=== PATIENT | male | born 1955 | race Caucasian/White ===

== ENCOUNTER 2017-11-18 16:19 | Observation (INO) ==
--- NOTE | 2017-11-18 16:57 | Emergency Department Note ---
Disposition Clinical Impression: Chest pain Qualifiers: Chest pain type: unspecified Qualified Code(s): R07.9 - Chest pain, unspecified Disposition: Admitted As Inpatient Condition: Good Forms: ED Satisfaction Letter Time of Disposition: 18:16 Chest Pain HPI - General Chief Complaint: ED Chest Pain Stated Complaint: chest pain,headache Time Seen by Provider: 11/18/17 16:41 Source: patient Mode of arrival: ambulatory Limitations: no limitations Vital Signs Reviewed: Yes Nursing Notes Reviewed: Yes - History of Present Illness HPI Narrative: 62-year-old male who comes in complaining of chest pain about 7:00 this morning describes it as a pressure-like pain across distress. Patient has no history of previous heart attack however has not had any recent cardiac workup. Risk factors include family history and high cholesterol. Pt complaint: chest pain Onset (ago): hour(s) Duration: constant Onset: during rest Pain Location: substernal, left chest Severity: moderate, severe Severity scale (1-10): 8 Quality: other (Pressure-like) Pain Radiation: none Improves with: nothing Worsens with: nothing Treatments prior to arrival chest pain: none - Related Data Previous Rx's Medication Instructions Recorded Mupirocin [Bactroban Oint] 1 appl TP BID 5 Days tube 05/02/15 Amoxicillin 875 mg PO BID #20 tablet 05/20/16 Ibuprofen [Motrin] 800 mg PO Q8HR PRN #30 tablet 05/20/16 traMADol [Ultram] 50 mg PO QID PRN #16 tablet 05/20/16 Cyclobenzaprine [Flexeril] 10 mg PO HS PRN #10 tablet 06/30/17 HYDROcodone/Acet 5/325 mg [Vulcan 1 tab PO Q8HR PRN #6 tab 06/30/17 5-325 mg] OxyCODONE/APAP 5/325 [Percocet 1 each PO Q6HR PRN 3 Days #10 09/29/17 5/325 MG] tablet predniSONE [PredniSONE] 10 mg PO DAILY #21 tablet 09/29/17 Allergies Allergy/AdvReac Type Severity Reaction Status Date / Time No Known Allergies Allergy Verified 11/18/17 17:08 All systems ED: reviewed and negative except as stated. Constitutional: Denies: fever, chills, weakness, weight change Eyes: Denies: eye pain, eye discharge, vision change ENT ED: Denies: ear pain, throat pain, dental pain, hearing loss, epistaxis, congestion, dysphagia Cardiovascular: Reports: chest pain. Denies: palpitations, dyspnea on exertion , edema, syncope Respiratory: Denies: cough, dyspnea, wheezes, hemoptysis, stridor Gastrointestinal: Denies: abdominal pain, nausea, vomiting, diarrhea, constipation, hematemesis, melena, hematochezia Genitourinary: Denies: urgency, dysuria, frequency, hematuria Musculoskeletal: Denies: back pain, neck pain, arthralgia, myalgia Integumentary: Denies: rash, abrasion, lesions Neurological: Reports: headache. Denies: weakness, numbness, paresthesias, confusion, abnormal gait, vertigo Psychiatric: Denies: anxiety, depression, suicidal thoughts, homicidal thoughts , auditory hallucinations, visual hallucinations Endocrine: Denies: fatigue Hematological/Lymphatic: Denies: easy bleeding, easy bruising Allergic/Immunologic: Denies: facial swelling, urticaria Chest Pain PMH - Past Medical History Medical history: Reports: arthritis, COPD, hypertension, other Surgical history: Reports: orthopedic, other, other Psychiatric history: Reports: no psych history - Social History Smoking Status: Never smoker Alcohol use: Reports: none Drug use: Reports: none Physical Exam - General Limitations: no limitations General appearance: alert - Head Head exam: atraumatic, normocephalic, normal inspection - Eye Eye exam: Present: normal appearance, PERRL, EOMI - ENT ENT exam: normal exam, normal oropharynx, mucous membranes moist - Neck Neck exam: Present: normal inspection, full ROM, trachea midline - Chest Chest inspection: Present: normal inspection, symmetric chest wall rise - Respiratory Respiratory exam: Present: normal lung sounds bilaterally - Cardiovascular Cardiovascular exam: Present: regular rate, normal rhythm, normal heart sounds - Abdominal Exam Abdominal exam: Present: soft, Non-Tender. Absent: tenderness, distention, guarding, rebound, rigidity - Extremities Exam Extremities exam: Present: normal inspection, full ROM. Absent: tenderness, pedal edema - Expanded Lower Extremity Exam Neurovascular/Tendon exam: Absent: motor deficit, sensory deficit, tendon deficit - Back Exam Back exam: Present: normal inspection, full ROM. Absent: tenderness - Neurological Exam Neurological exam: Present: alert, oriented X3 - Psychiatric Psychiatric exam: Present: normal affect, normal mood - Skin Skin exam: Present: warm, dry, intact, normal color Course - Reevaluation(s) Reevaluation #1: 62-year-old male with risk factors of high cholesterol and family history comes in complaining of chest pain beginning about 7 AM. Describes it as a pressure across his chest. EKG shows no acute change initial troponin is negative chest x-ray is clear. Patient will be admitted for further evaluation. - Consultations Consultation #1: Discussed with Dr. Murphy, Time: 18:16 Vital Signs Temperature 98.9 F 11/18/17 16:21 Pulse Rate 93 11/18/17 16:21 Respiratory Rate 18 11/18/17 16:21 Blood Pressure 122/85 11/18/17 16:21 O2 Sat by Pulse Oximetry 99 11/18/17 16:21 Temperature 98.9 F 11/18/17 16:21 Pulse Rate 83 11/18/17 18:00 Respiratory Rate 20 11/18/17 18:00 Blood Pressure 132/79 11/18/17 18:00 O2 Sat by Pulse Oximetry 98 11/18/17 18:00 Oxygen Delivery Oxygen Delivery Room Air Chest Pain - Lab Data Lab results reviewed: Yes I reviewed the patient's lab results. Result diagrams: 11/18/17 17:15 11/18/17 17:15 Lab Results 11/18/17 11/18/17 11/18/17 Range/Units 17:15 17:15 17:15 WBC 11.2 H (4.3-11.1) K/mcL RBC 4.79 (4.19-5.50) M/mcL Hgb 13.9 (12.9-16.9) g/dL Hct 41.7 (37.5-50.1) % MCV 87.1 (83.0-100.0) fL MCH 29.0 (28.0-33.3) pg MCHC 33.3 (31.6-35.5) g/dL RDW 12.7 (11.5-14.5) % Plt Count 217 (140-400) K/mcL MPV 11.1 (9.4-12.4) fL Immature Gran % 0.4 (0-4) % Seg Neutrophils % 75.7 % Lymphocytes % 14.7 % Monocytes % 8.1 % Eosinophils % 0.8 % Basophils % 0.3 % Neutrophils # 8.5 (1.6-8.9) K/mcL Lymphocytes # 1.7 (0.6-4.6) K/mcL Monocytes # 0.9 (0.0-1.3) K/mcL Eosinophils # 0.1 (0.0-0.6) K/mcL Basophils # 0.0 (0.0-0.2) K/mcL PT 11.1 (9.4-12.1) Seconds INR 1.0 APTT 35.1 (26.0-36.0) Seconds Sodium 139 (136-145) mEq/L Potassium 3.8 (3.5-5.1) mEq/L Chloride 106 (98-107) mEq/L Carbon Dioxide 27 (23-29) mEq/L BUN 12 (8-23) mg/dL Creatinine 0.94 (0.70-1.30) mg/dL Est GFR ( Amer) > 60 (> 60) Est GFR (Non-Af Amer) > 60 (> 60) BUN/Creatinine Ratio 13 (6-26) Glucose 101 (70-105) mg/dL Calculated Osmolality 288 (280-300) Calcium 9.3 (8.6-10.3) mg/dL Troponin I < 0.03 (< 0.04) ng/mL - Radiology Data Radiology results reviewed: Yes I reviewed the patient's radiology results. Chest X-Ray 11/18/17 16:24 IMPRESSION: No acute process. D/ / Joaquim De Oliveira MD / Joaquim De Oliveira MD Interpreting Provider: Joaquim De Oliveira MD Head CT 11/18/17 16:42 IMPRESSION: Normal CT of the brain without findings to explain the patient's headaches. D/ / Anatoliy Huff MD / Anatoliy Huff MD Interpreting Provider: Anatoliy Huff MD - EKG Data EKG attestation: Yes I reviewed and interpreted this EKG. EKG shows normal: sinus rhythm Rate: normal Rhythm: NSR [place]/QRS: normal Interpretation: no acute changes Heart Score - Score History: Moderately Suspicious EKG: Normal Age: 45-65 Risk Factors: 1-2 risk factors Troponin: Less than normal limit HEART Score Total: 3
[2017-11-18 17:29] LABS: Basophils % 0.3 %; Eosinophils # 0.1 K/mcL (0.0-0.6); Eosinophils % 0.8 %; Hematocrit 41.7 % (37.5-50.1); Hemoglobin 13.9 g/dL (12.9-16.9); Immature Granulocytes % 0.4 % (0-4); Lymphocytes # 1.7 K/mcL (0.6-4.6); Lymphocytes % 14.7 %; Mean Corpuscular HGB Conc 33.3 g/dL (31.6-35.5); Mean Corpuscular Volume 87.1 fL (83.0-100.0); Mean Platelet Volume 11.1 fL (9.4-12.4); Monocytes # 0.9 K/mcL (0.0-1.3); Monocytes % 8.1 %; Neutrophils # 8.5 K/mcL (1.6-8.9); Platelet Count 217 K/mcL (140-400); Red Blood Count 4.79 M/mcL (4.19-5.50); Red Cell Distribution Width 12.7 % (11.5-14.5); Segmented Neutrophils % 75.7 %
[2017-11-18 17:37] LABS: Prothrombin Time 11.1 Seconds (9.4-12.1)
[2017-11-18 17:40] LABS: Activated Partial Thrombo Time 35.1 Seconds (26.0-36.0)
[2017-11-18 17:47] LABS: BUN/Creatinine Ratio 13 (6-26); Blood Urea Nitrogen 12 mg/dL (8-23); Calcium 9.3 mg/dL (8.6-10.3); Carbon Dioxide 27 mEq/L (23-29); Chloride 106 mEq/L (98-107); Glucose 101 mg/dL (70-105); Osmolality,Calculated 288 (280-300); Potassium 3.8 mEq/L (3.5-5.1); Sodium 139 mEq/L (136-145); Troponin I < 0.03 ng/mL (< 0.04); eGFR For African Americans > 60 (> 60); eGFR For Non-African Americans > 60 (> 60)
[2017-11-18] MEDS ORDERED: Naloxone 0.4 MG/ML INJ IVP PRN (18:49)
[2017-11-18] MEDS ORDERED: Aspirin Enteric Coated 325 MG Tablet PO SCH (19:00)
--- NOTE | 2017-11-18 19:20 | Internal Med History&Physical ---
<Murtaza Martinez - Last Filed: 11/18/17 22:59> Date of Encounter: 11/18/17 Time of Encounter: 18:00 Assessment and Plan (1) Chest pain Status: Acute Acute on chronic chest pain. Pt. reports CP began at 7 a.m. this morning and presented as left-sided pressure w/radiation to back of neck and head. Denies N/ V/diaphoresis. Pt. reports intermittent CP in the past and also states he had heart cath done several years ago w/o stent placement but is unsure of date. Denies hx of RI or cardiac event previously. Initial troponin <0.03. Trend. Aspirin 325 mg now. Lipitor 80 mg now. Nitro PRN. Continuous cardiac telemetry. Echocardiogram. NPO at midnight for nuclear pharm stress test in a.m. Consider Cardiology consult if troponins, Echocardiogram, and/or stress test abnormal. Pt. discussed w/Dr. Hill who agrees w/plan of care. Pt. is high risk for cardiac event and further morbidity based on current sx, recurrent intermittent CP, personal and familial risk factors. Observation. Qualifiers: Chest pain type: other chest pain Qualified Code(s): R07.89 - Other chest pain; R07.8 - Other chest pain (2) SOB (shortness of breath) Status: Acute Acute SOB accompanying CP sx. Pt. denies home O2 use. Supplemental O2 w/ titration and SpO2 monitoring PRN. DuoNebs Q6 PRN ordered for pts. COPD. (3) Headache Status: Acute Acute headache. Pt. reports acute headache accompanying CP sx. No previous hx of chronic headaches. CT of the head shows no intracranial abnormality. Tylenol 650 mg PO Q6HR PRN and will continue pts. home pain medications for pain mgmt. Pt. to be monitored. Qualifiers: Headache type: unspecified Headache chronicity pattern: acute headache Intractability: not intractable Qualified Code(s): R51 - Headache (4) COPD (chronic obstructive pulmonary disease) Status: Chronic Hx of chronic COPD. Stable. Pts. lungs clear in auscultation. Supplemental O2 and SpO2 monitoring PRN. Continue pts. prednisone PO. Qualifiers: COPD type: unspecified COPD Qualified Code(s): J44.9 - Chronic obstructive pulmonary disease, unspecified (5) Chronic back pain Status: Chronic Hx of chronic back pain following lower back surgery. Pt. denies instability on feet and reports he is not falls precaution or has falls hx. Continue pts. pain medications for pain mgmt. Qualifiers: Back pain location: low back pain Back pain laterality: midline Sciatica presence: unspecified whether sciatica present Qualified Code(s): M54.5 - Low back pain; G89.29 - Other chronic pain; G89.29 - Other chronic pain (6) Arthritis Status: Chronic Hx of chronic arthritis. Continue pts. pain medications for pain mgmt. (7) DVT prophylaxis Status: Acute Heparin 5,000 units SQ Q8 for DVT prophylaxis. Monitor pt. for signs of bleeding. Internal Medicine - H&P: HPI Chief complaint: Chest pain Admitted From: Emergency Dept Plans for Post Hospital Care: Home History of present illness: Mr. Hare is a 62 year old male w/PMH of arthritis and COPD presents from the ED w/CC of chest pain that began this morning at 7 a.m. Pt. reports he has had intermittent chest pain in the past, but not recently. No alleviating or aggravating factors. Pt. describes pain as left-sided pressure in his chest w/ radiation to the back of his neck and head. Pt. reports SOB, headache, and nausea but denies vision changes, diaphoresis, or vomiting. Pt. reports having a heart catheterization in the past but cannot recall when. Reports no stents placed. Pt. denies any previous RI or cardiac event or recent cardiac work-up. Pt. denies recent illness, fever, chills, changes in vision, palpitations, unusual bleeding, abdominal pain, diarrhea, constipation, dizziness, lightheadedness, pre-syncope, or syncope. Past Med Surg Social Fam HX - Past Medical History Source: patient, old records reviewed Medical history: arthritis, COPD, other Psychiatric history: no psych history - Past Surgical History Surgical History: orthopedic, other (Lower back surgery, left knee, left elbow, left shoulder), other (Tonsillectomy) - Social History Smoking Status: Never smoker Smokeless Tobacco Status: No Alcohol use: none Drug use: none Current living situation: Home, With Family Activity Level: Independent ambulation Recent Out of Country Travel Within the Last 8 Weeks: No Exposure or Possible Exposure to Illness During Travel: No - Family History Father Race: Family Member Ethnicity: Non- Living Status: Cause of : Prostate cancer Hx Family Cancer: Yes (Prostate) Mother Race: Family Member Ethnicity: Non- Living Status: Still Living Hx Family Neurologic Disorders: Yes (Alzheimer's disease) Sister Race: Family Member Ethnicity: Non- Living Status: Age at : 68 Cause of : RI Hx Family Cardiac Disorders: Yes (RI, HTN, HLD) Hx Family Endocrine Disorder: Yes (DM) Internal Medicine - H&P: Meds Aspirin Enteric Coated [Aspirin EC] 81 mg PO DAILY #30 tablet. 11/19/17 [Rx] Atorvastatin [Lipitor] 20 mg PO HS #30 tablet 11/19/17 [Rx] 3 Allergy/AdvReac Type Severity Reaction Status Date / Time No Known Allergies Allergy Verified 11/18/17 17:08 All Systems PM: A 10-system review of systems was performed and is negative for pertinent findings except as documented above in the HPI. - Constitutional Constitutional: no chills, no fever(s), no night sweats - EENT Eyes: no change in vision, no discharge, no pain, no photophobia Ears: no ear discharge, no ear pain, no tinnitus Nose, mouth and throat: no dysphagia, no nasal discharge, no neck pain, no sore throat - Breasts Breasts: as per HPI - Cardiovascular Cardiovascular ROS IM: as per HPI, chest pain, dyspnea, dyspnea on exertion, no diaphoresis, no lightheadedness, no palpitations, no syncope - Respiratory Respiratory: dyspnea, dyspnea on exertion, no cough, no wheezing, no excessive phlegm production - Gastrointestinal Gastrointestinal: no abdominal pain, no diarrhea, no hematemesis, no hematochezia, no melena, no nausea, no vomiting - Genitourinary Genitourinary ROS male: as per HPI - Musculoskeletal Musculoskeletal ROS IM: as per HPI, back pain, no numbness, no tingling - Integumentary Integumentary IM: no rash, no unusual bruising - Neurological Neurological ROS: no confusion, no convulsions, no focal weakness, no numbness, no tingling, no tremor(s) - Psychiatric Psychiatric: as per HPI - Endocrine Endocrine IM: as per HPI - Hematologic/Lymphatic Hematologic/Lymphatic: no easy bruising - Allergic/Immunologic Allergic/Immunologic: as per HPI - Constitutional Vitals: Temp Pulse Resp BP Pulse Ox 98.9 F 83 20 124/80 100 11/18/17 16:21 11/18/17 18:48 11/18/17 18:48 11/18/17 18:48 11/18/17 18:48 General appearance: Present: cooperative, A&O X 3, pleasant, no acute distress, answers questions appropriately - Head Head exam: Present: atraumatic, normocephalic - Eye Eye exam: Present: PERRL, conjuntiva pink, sclera anicteric Pupils: Present: PERRL - ENT ENT exam: Present: normal exam - Neck Neck exam general surgery: Present: normal inspection, supple, trachea midline. Absent: lymphadenopathy - Respiratory Respiratory exam: Present: CTAB. Absent: accessory muscle use, rales, rhonchi, wheezes - Cardiovascular Cardiovascular exam: Present: RRR, +S1, +S2. Absent: diastolic murmur, gallop, rubs, systolic murmur - GI/Abdominal GI/Abdominal exam: Present: normal bowel sounds, soft, no peritoneal signs. Absent: distended, tenderness - Rectal Rectal exam: Present: deferred - Additional comments: exam deferred. - Extremities Exam Extremities exam: Present: warm, radial pulses palpable and symmetrical. Absent : calf tenderness, cyanotic, pedal edema - Back Exam Back exam: Present: normal inspection - Neurological Exam Neurological exam: Present: CN II-XII intact, oriented X3, no focal deficits. Absent: pronater drift, facial droop, speech deficit - Psychiatric Psychiatric exam: Present: normal affect, normal mood - Skin Skin exam: Present: dry, intact Internal Med - H&P Results - Labs CBC & Chem 7: 11/18/17 17:15 11/18/17 17:15 Labs: Short CBC 11/18/17 Range/Units 17:15 WBC 11.2 H (4.3-11.1) K/mcL Hgb 13.9 (12.9-16.9) g/dL Hct 41.7 (37.5-50.1) % Plt Count 217 (140-400) K/mcL Neutrophils # 8.5 (1.6-8.9) K/mcL BMP 11/18/17 17:15 Sodium 139 Potassium 3.8 Chloride 106 Carbon Dioxide 27 BUN 12 Creatinine 0.94 Glucose 101 Calcium 9.3 Cardiac Enzymes 11/18/17 Range/Units 17:15 Troponin I < 0.03 (< 0.04) ng/mL - EKG Data EKG shows normal: sinus rhythm - EKG Data Prior EKG available for review: no Interpretation IM: normal EKG - Impressions ITS Impressions Chest X-Ray 11/18/17 16:24 IMPRESSION: No acute process. D/ / Joaquim De Oliveira MD / Joaquim De Oliveira MD Interpreting Provider: Joaquim De Oliveira MD Head CT 11/18/17 16:42 IMPRESSION: Normal CT of the brain without findings to explain the patient's headaches. D/ / Anatoliy Huff MD / Anatoliy Huff MD Interpreting Provider: Anatoliy Huff MD - Diagnostic Studies Chest x-ray Additional comments: Impressions Chest X-Ray 11/18/17 16:24 IMPRESSION: No acute process. D/ / Joaquim De Oliveira MD / Joaquim De Oliveira MD Interpreting Provider: Joaquim De Oliveira MD CT scan - head Additional comments: Impressions Head CT 11/18/17 16:42 IMPRESSION: Normal CT of the brain without findings to explain the patient's headaches. D/ / Anatoliy Huff MD / Anatoliy Huff MD Interpreting Provider: Anatoliy Huff MD <Kristyn Hill - Last Filed: 12/11/17 08:24> Date of Encounter: 11/18/17 Internal Medicine - H&P: HPI History of present illness: Mr. Hare is a 62 year old male All Systems PM: A 10-system review of systems was performed and is negative for pertinent findings except as documented above in the HPI. - Constitutional Vitals: Temp Pulse Resp BP Pulse Ox 98.7 F 79 16 113/74 98 11/19/17 18:53 11/19/17 18:53 11/19/17 18:53 11/19/17 18:53 11/19/17 18:53 Internal Med - H&P Results - Labs CBC & Chem 7: 11/19/17 06:22 11/19/17 06:22 - Impressions ITS Impressions Echocardiogram 11/19/17 18:52 Impressions: LVEF 65%. Normal LV chamber size, wall thickness and function. Mild left ventricular diastolic dysfunction. Normal right ventricular structure and function. No evidence of pulmonary hypertension. No significant valvular dysfunction. Left Ventricular Wall Motion: Rest Echo Findings All wall segments showed normal motion. Findings: Study Quality * Technically adequate exam. ECG Findings * Normal sinus rhythm. Left Ventricle * LVEF 65%. * Normal LV chamber size, wall thickness and function. * Mild left ventricular diastolic dysfunction. Right Ventricle * Normal right ventricular structure and function. Left Atrium * Mildly dilated left atrium. Right Atrium * Normal right atrial size. Interatrial Septum * Interatrial septum not well evaluated. Aortic Valve * Trileaflet aortic valve with normal function. * No aortic stenosis. * No aortic regurgitation. Mitral Valve * Normal mitral valve function. Mildly thickned leaflets. * No mitral stenosis. * No mitral regurgitation. Tricuspid Valve * Normal tricuspid valve structure and function. * Trace tricuspid regurgitation. * No evidence of pulmonary hypertension. Pulmonic Valve * Pulmonic valve not well visualized. Aorta * Normally sized aortic root. Pericardium * The pericardium appears normal. IVC * The IVC is not well evaluated. Pulmonary Artery * Normal visualized portions of the main pulmonary artery. - Attending Attestation I personally and independently interviewed and examined the patient, and I reviewed the patient's medical record . I am in agreement with the resident's assessment and proposed treatment plan. I discussed my findings and recommendation with the patient and answer all questions. The patient's medical records were edited to accurately reflect this encounter.
[2017-11-18] MEDS: Acetaminophen 325 MG TABLET PO PRN (19:38)
[2017-11-18] MEDS ORDERED: Ipratropium/Albuterol Neb 3 ML IH PRN (19:48)
[2017-11-18] MEDS ORDERED: Nitroglycerin 0.4 MG TAB.SUBL SL PRN (20:00)
[2017-11-18] MEDS ORDERED: Aspirin Enteric Coated 325 MG Tablet PO ONE (21:00)
[2017-11-18] MEDS ORDERED: *HR* OxyCODONE/APAP 7.5/325 TABLET PO PRN (21:36)
[2017-11-18] MEDS ORDERED: *HR* HYDROcodone/Acet 5/325 mg TABLET PO PRN (21:36)
[2017-11-18] MEDS: *HR* Heparin 5,000 UNIT/ML VIAL SQ SCH (22:40)
[2017-11-19] MEDS ORDERED: *HR* Promethazine 25 MG/ML VIAL IVP ONE (01:42)
[2017-11-19] MEDS ORDERED: Ondansetron 4 MG/2 ML VIAL IVP ONE (02:07)
[2017-11-19] MEDS: *HR* Heparin 5,000 UNIT/ML VIAL SQ SCH ×2 (06:20→14:00)
[2017-11-19] MEDS ORDERED: Regadenoson 0.4 MG/5 ML SYRINGE IVP ONE (06:44)
[2017-11-19 06:56] LABS: Basophils % 0.3 %; Eosinophils % 0.4 %; Hematocrit 41.3 % (37.5-50.1); Hemoglobin 13.7 g/dL (12.9-16.9); Immature Granulocytes % 0.3 % (0-4); Lymphocytes # 0.6 K/mcL (0.6-4.6); Lymphocytes % 7.7 %; Mean Corpuscular HGB Conc 33.2 g/dL (31.6-35.5); Mean Corpuscular Hemoglobin 28.9 pg (28.0-33.3); Mean Corpuscular Volume 87.1 fL (83.0-100.0); Mean Platelet Volume 10.7 fL (9.4-12.4); Monocytes # 0.4 K/mcL (0.0-1.3); Monocytes % 5.6 %; Neutrophils # 6.8 K/mcL (1.6-8.9); Platelet Count 194 K/mcL (140-400); Red Blood Count 4.74 M/mcL (4.19-5.50); Red Cell Distribution Width 12.8 % (11.5-14.5); Segmented Neutrophils % 85.7 %
[2017-11-19 07:11] LABS: Alanine Aminotransferase 8 Units/L (7-52); Albumin 3.9 g/dL (3.5-5.7); Albumin/Globulin Ratio 1.5 (1.1-2.2); Alkaline Phosphatase 75 Units/L (34-104); Aspartate Amino Transferase 12 Units/L (13-39); BUN/Creatinine Ratio 14 (6-26); Bilirubin,Total 0.6 mg/dL (0.3-1.0); Blood Urea Nitrogen 12 mg/dL (8-23); Calcium 8.8 mg/dL (8.6-10.3); Carbon Dioxide 28 mEq/L (23-29); Chloride 105 mEq/L (98-107); Chol/HDL Ratio 4.7 (0-4.9); Cholesterol 177 mg/dL (< 200); Globulin 2.6 g/dL (2.4-3.5); Glucose 109 mg/dL (70-105); HDL Cholesterol 38 mg/dL (40-59); LDL Cholesterol,Calculated 117 mg/dL (0-99); Osmolality,Calculated 286 (280-300); Sodium 138 mEq/L (136-145); Total Protein 6.5 g/dL (6.4-8.9); Triglycerides 110 mg/dL (< 150); eGFR For African Americans > 60 (> 60); eGFR For Non-African Americans > 60 (> 60)
[2017-11-19 08:30] LABS: Estimated Average Glucose 123 mg/dl; Hemoglobin A1C 5.9 %
[2017-11-19] MEDS ORDERED: Aspirin Enteric Coated 81 MG Tablet PO SCH (09:00)
[2017-11-19] MEDS: Acetaminophen 325 MG TABLET PO PRN (14:01)
--- NOTE | 2017-11-19 16:44 | Electrocardiograph Report ---
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
--- NOTE | 2017-11-19 17:41 | Discharge Summary ---
- NOTES TO OUTPATIENT PROVIDER Notes to Outpatient Provider: Pt admitted for chest pain. STress negative, echo with pEF, mild LVDD, no valvular dysfunction. Troponins negative, CXR negative. He has been started on ASA 81mg and statin. Due to pt's history, I recommend that pt have a follow up with cardiology for evaluation and management if chest pain continues. Date of Encounter: 11/19/17 Time of Encounter: 10:10 - Discharge Diagnosis (1) Chest pain Priority: Secondary Status: Acute Comments: Acute on chronic. Patient reports the chest pain began at 7 AM morning of admission. He describes it as a pressure in his left chest, there were no aggravating or relieving factors. He reports associated symptoms of nausea, vomiting last night in his room. Patient with history of stent placement, unsure of date. He denies any history of SD. Troponins are negative. Chest x-ray is negative. Echo showed an LVEF 65% with mild LV DD, no significant valvular dysfunction. Stress test showed a gated EF 69%, negative for ischemia or infarct. Patient denies continued chest pain. The pain is not reproducible. Due to his prior history, I recommend the patient have follow-up with cardiology for continued monitoring. Continue home medications. Qualifiers: Chest pain type: other chest pain Qualified Code(s): R07.89 - Other chest pain; R07.8 - Other chest pain (2) DVT prophylaxis Priority: Secondary Status: Acute Comments: Heparin (3) SOB (shortness of breath) Priority: Secondary Status: Acute Comments: Plan as above (4) Arthritis Priority: Secondary Status: Chronic Comments: Chronic. Continue home medications. (5) COPD (chronic obstructive pulmonary disease) Priority: Secondary Status: Chronic Comments: No acute exacerbation. Lungs are clear. Patient denies cough, he is not requiring supplemental oxygen. Qualifiers: COPD type: unspecified COPD Qualified Code(s): J44.9 - Chronic obstructive pulmonary disease, unspecified (6) Chronic back pain Priority: Secondary Status: Chronic Comments: Chronic. Continue home medications. Qualifiers: Back pain location: low back pain Back pain laterality: midline Sciatica presence: unspecified whether sciatica present Qualified Code(s): M54.5 - Low back pain; G89.29 - Other chronic pain; G89.29 - Other chronic pain Hospital course: Mr. Hare is a 62 year old male with PMH of COPD, HLD, HTN, CAD with stent. Pt presented with left chest pressure that began at 0700 when he awakened yesterday. Pressure radiated to left chest and pt had associated SOB and nausea. Pt denies alleviating or aggravating factors and no relation to food. Echo with pEF, mild LVDD, and no valvular dysfunction, stress test negative, chest xray negative, troponins negative. Due to pt's history, pt should follow up with PCP for stable angina, as well as follow up with PCP. Vitals and labs are stable and WNL. Pt is appropriate for discharge. Discharge discussed with: family - Time Spent with Patient Total time spent providing and/or coordinating discharge services: Less than 30 minutes - Discharge Medications Prescriptions: Aspirin Enteric Coated [Aspirin EC] 81 mg PO DAILY #30 tablet. Atorvastatin [Lipitor] 20 mg PO HS #30 tablet Home Medications: Aspirin Enteric Coated [Aspirin EC] 81 mg PO DAILY #30 tablet. 11/19/17 [Rx] Atorvastatin [Lipitor] 20 mg PO HS #30 tablet 11/19/17 [Rx] Allergies/Adverse Reactions: 3 Allergy/AdvReac Type Severity Reaction Status Date / Time No Known Allergies Allergy Verified 11/18/17 17:08 Date of admission: 11/18/17 18:54 Primary care physician: PCP NONE Discharging clinician: Linda Tatum Anticipated date of discharge: 11/19/17 - Constitutional Vitals: Temp Pulse Resp BP Pulse Ox 98.5 F 85 17 105/65 99 11/19/17 14:48 11/19/17 14:48 11/19/17 14:48 11/19/17 14:48 11/19/17 14:48 General appearance: Present: cooperative, A&O X 3, pleasant, no acute distress, answers questions appropriately - Head Head exam: Present: atraumatic, normal inspection, normocephalic - Eye Eye exam: Present: normal appearance, conjuntiva pink, sclera anicteric - Neck Neck exam general surgery: Present: normal inspection, supple, trachea midline. Absent: lymphadenopathy, tenderness - Respiratory Respiratory exam: Present: CTAB. Absent: accessory muscle use, rales, rhonchi, wheezes - Cardiovascular Cardiovascular exam: Present: RRR, +S1, +S2. Absent: bradycardia, diastolic murmur, gallop, rubs, systolic murmur, tachycardia - GI/Abdominal GI/Abdominal exam: Present: normal bowel sounds, soft. Absent: distended, hepatomegaly, tenderness - Extremities Exam Extremities exam: Present: normal capillary refill, normal inspection, warm, radial pulses palpable and symmetrical. Absent: calf tenderness, cyanotic, pedal edema, tenderness - Neurological Exam Neurological exam: Present: alert, oriented X3, no focal deficits. Absent: facial droop, speech deficit - Skin Skin exam: Present: dry, intact, normal color, warm. 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 You have 2 prescriptions at your pharmacy Take medications as directed Return to your normal diet and activities as tolerated. REturn to work when cleared by your PCP. - Diet and Activity Activity: increase activity as tolerated, return to school once cleared by your PCP/specialist Diet: low fat, low cholesterol, low salt diet
[2017-11-19 18:54] VITALS: BP 113/74
== END 2017-11-19 19:00 | disposition home or self-care (01) ==
LOC: 3BNU 16:19 → EMEROO 16:19 → 3BNU 19:44
PROVIDERS: ADMIT Hospitalist; ATTEND Registered Nurse